=== PATIENT | female | born 1965 | race Caucasian/White ===

== ENCOUNTER 2017-01-27 10:59 | Emergency (ER) | payer OTHER ==
--- NOTE | 2017-01-27 11:32 | ED ---
General Adult HPI - General Chief complaint: Urogenital Stated complaint: Blood in urine Time Seen by Provider: 01/27/17 11:09 Source: patient, RN notes reviewed Mode of arrival: ambulatory Limitations: no limitations - History of Present Illness Initial comments: Patient 52-year-old female who presents emergency room today with chief complaint of hematuria. She does admit that she noticed some blood in her urine yesterday. States similar to get clear as the day went on. States she woke up today she went to the bathroom noticed blood once again. She denies any pain. She denies any other complaints or associated symptoms. States she' s never had similar symptoms in the past. Patient denies any recent fever, chills, shortness of breath, chest pain, back pain, abdominal pain, nausea or vomiting, numbness or tingling, dysuria, constipation or diarrhea, headaches or visual changes, or any other complaints. - Related Data Previous Rx's Medication Instructions Recorded Nitrofurantoin Monohyd/M-Cryst 100 mg PO Q12HR #14 cap 01/27/17 [Macrobid] predniSONE 60 mg PO DAILY 5 Days 01/27/17 Allergies Allergy/AdvReac Type Severity Reaction Status Date / Time UNIVERSAL REACTOR Allergy Unknown Uncoded 01/27/17 11:27 Review of Systems ROS Statement: Those systems with pertinent positive or pertinent negative responses have been documented in the HPI. ROS Other: All systems not noted in ROS Statement are negative. Past Medical History Additional Past Medical History / Comment(s): endometriosis, TMJ History of Any Multi-Drug Resistant Organisms: None Reported Past Surgical History: Tonsillectomy Additional Past Surgical History / Comment(s): eye surgery Past Psychological History: No Psychological Hx Reported Smoking Status: Never smoker Past Alcohol Use History: None Reported Past Drug Use History: None Reported General Exam - General Exam Comments Initial Comments: General: The patient is awake and alert, in no distress, and does not appear acutely ill. Eye: Pupils are equal, round and reactive to light, extra-ocular movements are intact. No nystagmus. There is normal conjunctiva bilaterally. No signs of icterus. Ears, nose, mouth and throat: There are moist mucous membranes and no oral lesions. Neck: The neck is supple, there is no tenderness or JVD. Cardiovascular: There is a regular rate and rhythm. No murmur, rub or gallop is appreciated. Respiratory: Lungs are clear to auscultation, respirations are non-labored, breath sounds are equal. No wheezes, stridor, rales, or rhonchi. Gastrointestinal: Soft, non-distended, non-tender abdomen without masses or organomegaly noted. There is no rebound or guarding present. No CVA tenderness. Bowel sounds are unremarkable. Musculoskeletal: Normal ROM, no tenderness. Strength 5/5. Sensation intact. Pulses equal bilaterally 2+. Neurological: A&O x 3. CN II-XII intact, There are no obvious motor or sensory deficits. Coordination appears grossly intact. Speech is normal. Skin: Skin is warm and dry and no rashes or lesions are noted. Psychiatric: Cooperative, appropriate mood & affect, normal judgment. Limitations: no limitations Course Vital Signs 01/27/17 11:01 Temperature 98.0 F Pulse Rate 76 Respiratory 20 Rate Blood Pressure 106/89 O2 Sat by Pulse 99 Oximetry Medical Decision Making - Medical Decision Making Patient does have a long history of ALLERGIC reactions. She is unsure what the reactions are to these medications. Long conversation have the patient. Multiple attempts made to call pharmacy and looked through records to see if patient's had any antibiotics without reaction. Patient at this time is not helpful with any other reactions to the medications. She states she typically takes steroids anytime she is given a new medicine. It was discussed about a dose of gentamicin here in emergency room. At this time patient states she is too afraid to take this antibiotic. She does not want any medications given to her here. She is advised that her urinalysis is consistent with urinary tract infection but needs follow-up with the family doctor or urologist to have a repeat test performed. Patient will be discharged home with a prescription for prednisone Macrobid. At this time patient states she is unsure if she'll take it. The importance of taking the medication was discussed. Importance of returning if symptoms increase or worsen was also discussed. Patient states understanding at this time. - Lab Data Result diagrams: 01/27/17 11:30 01/27/17 11:30 Lab Results 01/27/17 01/27/17 01/27/17 Range/Units 11:30 11:30 11:30 WBC 4.0 (3.8-10.6) k/uL RBC 4.79 (3.80-5.40) m/uL Hgb 13.5 (11.4-16.0) gm/dL Hct 42.0 (34.0-46.0) % MCV 87.6 (80.0-100.0) fL MCH 28.3 (25.0-35.0) pg MCHC 32.3 (31.0-37.0) g/dL RDW 14.6 (11.5-15.5) % Plt Count 144 L (150-450) k/uL Neutrophils % 63 % Lymphocytes % 21 % Monocytes % 9 % Eosinophils % 4 % Basophils % 1 % Neutrophils # 2.5 (1.3-7.7) k/uL Lymphocytes # 0.8 L (1.0-4.8) k/uL Monocytes # 0.3 (0-1.0) k/uL Eosinophils # 0.2 (0-0.7) k/uL Basophils # 0.0 (0-0.2) k/uL Sodium 138 (137-145) mmol/L Potassium 4.4 (3.5-5.1) mmol/L Chloride 100 (98-107) mmol/L Carbon Dioxide 27 (22-30) mmol/L Anion Gap 11 mmol/L BUN 20 H (7-17) mg/dL Creatinine 0.65 (0.52-1.04) mg/dL Est GFR (MDRD) Af Amer >60 (>60 ml/min/1.73 sqM) Est GFR (MDRD) Non-Af >60 (>60 ml/min/1.73 sqM) Glucose 78 (74-99) mg/dL Calcium 9.0 (8.4-10.2) mg/dL Total Bilirubin 0.5 (0.2-1.3) mg/dL AST 41 H (14-36) U/L ALT 51 (9-52) U/L Alkaline Phosphatase 83 (38-126) U/L Total Protein 7.2 (6.3-8.2) g/dL Albumin 4.1 (3.5-5.0) g/dL Urine Color Red Urine Appearance Cloudy H (Clear) Urine pH 7.0 (5.0-8.0) Ur Specific [place] 1.020 (1.001-1.035) Urine Protein 1+ H (Negative) Urine Glucose (UA) Negative (Negative) Urine Ketones Negative (Negative) Urine Blood Large H (Negative) Urine Nitrite Negative (Negative) Urine Bilirubin Negative (Negative) Urine Urobilinogen <2.0 (<2.0) mg/dL Ur Leukocyte Esterase Trace H (Negative) Urine RBC >182 H (0-5) /hpf Urine WBC >182 H (0-5) /hpf Disposition Clinical Impression: Hematuria, UTI (urinary tract infection) Disposition: HOME SELF-CARE Condition: Stable Instructions: Urinary Tract Infection in Women (ED) Additional Instructions: Please use medication as discussed. Please follow-up with urologist/family doctor in the next 2 days of symptoms have not improved. Please return to emergency room if the symptoms increase or worsen or for any other concerns. Prescriptions: Nitrofurantoin Monohyd/M-Cryst [Macrobid] 100 mg PO Q12HR #14 cap predniSONE 60 mg PO DAILY 5 Days Referrals: None,Stated [Primary Care Provider] - 1-2 days Damien Mailk MD [STAFF PHYSICIAN] - 1-2 days Chivo Claros DO [STAFF PHYSICIAN] - 1-2 days Time of Disposition: 13:24
[2017-01-27 12:22] LABS: Basophils % (A) 1 %; CH 28.3; CHCM 32.5; Eosinophils # (A) 0.2 k/uL (0-0.7); Eosinophils % (A) 4 %; HDW 2.12; HGB 13.5 gm/dL (11.4-16.0); Luc # (Auto) 0.11; Luc % (Auto) 3; Lymphocytes # (A) 0.8 k/uL (1.0-4.8); Lymphocytes % (A) 21 %; MCH 28.3 pg (25.0-35.0); MCHC 32.3 g/dL (31.0-37.0); MCV 87.6 fL (80.0-100.0); Mean Platelet Volume 8.1; Monocytes # (A) 0.3 k/uL (0-1.0); Monocytes % (A) 9 %; Neutrophils # (A) 2.5 k/uL (1.3-7.7); Neutrophils % (A) 63 %; RBC 4.79 m/uL (3.80-5.40); RDW 14.6 % (11.5-15.5); WBC (Perox) 4.27
[2017-01-27 12:32] LABS: ALT 51 U/L (9-52); AST 41 U/L (14-36); Alkaline Phosphatase 83 U/L (38-126); Anion Gap 11 mmol/L; Appearance,Urine Cloudy (Clear); Bilirubin,Urine Negative (Negative); Blood Urea Nitrogen 20 mg/dL (7-17); Carbon Dioxide 27 mmol/L (22-30); Chloride 100 mmol/L (98-107); Glucose 78 mg/dL (74-99); Glucose,Urine (UA) Negative (Negative); Ketones,Urine Negative (Negative); Leukocyte Esterase,Urine Trace (Negative); Nitrite,Urine Negative (Negative); Non-African American GFR(MDRD) >60 (>60 ml/min/1.73 sqM); Particle Count 8583; Potassium 4.4 mmol/L (3.5-5.1); Protein,Urine 1+ (Negative); RBC,Urine >182 /hpf (0-5); Sodium 138 mmol/L (137-145); Total Bilirubin 0.5 mg/dL (0.2-1.3); Total Protein 7.2 g/dL (6.3-8.2); UA Billing (MACRO vs. MICRO) MICRO; Urobilinogen,Urine <2.0 mg/dL (<2.0); WBC,Urine >182 /hpf (0-5)
[2017-01-27 13:35] VITALS: BP 113/67; PULSE 64; RESP 16; TEMP 96.9
== END 2017-01-27 13:35 | disposition home or self-care (01) ==
LOC: EC 10:59
DX: N39.0 Urinary tract infection, site not specified (principal); Z87.42 Personal history of other diseases of the female genital tract; Z91.048 Other nonmedicinal substance allergy status
CPT/HCPCS: 36415; 80053; 81001; 85025; 87086; 99283

== ENCOUNTER 2017-06-26 10:24 | Inpatient (IN) | payer OTHER ==
--- NOTE | 2017-06-26 10:58 | ED ---
Psych HPI - General Chief Complaint: Psychiatric Symptoms Stated Complaint: Not feeling good/depression Time Seen by Provider: 06/26/17 10:45 Source: patient, family Mode of arrival: wheelchair - History of Present Illness Initial Comments: This 52-year-old white female presents with her father with the complaint of not being able to eat for the last 2 days. She states that every time that she eats then it feels like her face will swell up and her throat will swell. She also states that she gets very nauseated and develops a headache. She apparently has been dealing with this for over 30 years. She states that she has been seen Multiple [facility] [place] and also spent a week at [facility] several years ago. They're unsure on what her exact diagnosis is. She seems to think that she has mass cell disorder and some type of autoimmune disorder although this is per her research on the Internet. She states that she has been unable to eat anything as anything that she takes and will cause her symptoms. She feels very depressed and anxious and this regard. She states that she does not believe in suicide but she wants us to treat her because she is confident that if we treat her then she will and she wants to . She denies any other complaints or modifying factors. - Related Data Home Medications Medication Instructions Recorded Confirmed No Known Home Medications [No 06/26/17 06/26/17 Known Home Medications] Allergies Allergy/AdvReac Type Severity Reaction Status Date / Time UNIVERSAL REACTOR Allergy Unknown Uncoded 01/27/17 11:27 Review of Systems ROS Statement: Those systems with pertinent positive or pertinent negative responses have been documented in the HPI. ROS Other: All systems not noted in ROS Statement are negative. Past Medical History Additional Past Medical History / Comment(s): endometriosis, TMJ, mast cell disorder, spotaneous idiopathic anaphylaxis History of Any Multi-Drug Resistant Organisms: None Reported Past Surgical History: Tonsillectomy Additional Past Surgical History / Comment(s): eye surgery Past Psychological History: No Psychological Hx Reported Smoking Status: Never smoker Past Alcohol Use History: None Reported Past Drug Use History: None Reported General Exam - General Exam Comments Initial Comments: GENERAL: The patient is well nourished and well hydrated. VITAL SIGNS: Heart rate, blood pressure, respiratory rate reviewed as recorded in nurse's notes. EYES: Pupils are round and reactive. Extraocular movements are intact. No conjunctival / lid redness or swelling. ENT: No external evidence of injury, swelling, or ecchymosis. Airway is patent. Throat is clear. NECK: Nontender. No swelling or evidence of injury. No subcutaneous emphysema. Trachea is midline. No thyroid mass. HEART: Regular rate and rhythm. Good peripheral pulses. LUNGS/CHEST: Breath sounds clear and equal bilaterally. No rales, rhonchi, or wheezes. No ecchymosis, subcutaneous emphysema, or tenderness. ABDOMEN: Abdomen soft without tenderness. No palpable masses or organomegaly. No peritoneal signs. No abdominal wall swelling or ecchymosis. EXTREMITIES: No extremity tenderness. Normal muscle tone and function. No thoracolumbar tenderness. NEUROLOGIC: Sensation is grossly intact. Cranial nerve exam reveals face is symmetrical, tongue is midline, speech is clear. SKIN: No abrasions or ecchymosis is noted. No induration or masses noted. PSYCHIATRIC: Alert and oriented. Somewhat obtrusive behavior noted, mild flat affect. Limitations: no limitations Course Vital Signs 06/26/17 10:26 Temperature 98.1 F Pulse Rate 78 Respiratory 18 Rate Blood Pressure 133/82 O2 Sat by Pulse 100 Oximetry Medical Decision Making - Medical Decision Making the patient was seen and examined. All diagnostics are reviewed.It appears that the patient's blood sugar is quite low at 54. The CO2 is low at 17 consistent with dehydration. She also has some ketones in her urine. An IV is established and she is hydrated. She also receives some IV glucose with a one half amp of D50. She also receives a D5 0.9 drip. The case is discussed with internal medicine and they're agreeable to admission. - Lab Data Result diagrams: 06/26/17 11:25 06/26/17 11:25 Lab Results 06/26/17 06/26/17 06/26/17 Range/Units 11:25 11:25 11:46 WBC 5.1 (3.8-10.6) k/uL RBC 5.07 (3.80-5.40) m/uL Hgb 14.5 (11.4-16.0) gm/dL Hct 44.7 (34.0-46.0) % MCV 88.3 (80.0-100.0) fL MCH 28.7 (25.0-35.0) pg MCHC 32.5 (31.0-37.0) g/dL RDW 12.1 (11.5-15.5) % Plt Count 177 (150-450) k/uL Neutrophils % 63 % Lymphocytes % 21 % Monocytes % 8 % Eosinophils % 3 % Basophils % 1 % Neutrophils # 3.2 (1.3-7.7) k/uL Lymphocytes # 1.1 (1.0-4.8) k/uL Monocytes # 0.4 (0-1.0) k/uL Eosinophils # 0.2 (0-0.7) k/uL Basophils # 0.1 (0-0.2) k/uL Sodium 136 L (137-145) mmol/L Potassium 3.8 (3.5-5.1) mmol/L Chloride 101 (98-107) mmol/L Carbon Dioxide 17 L (22-30) mmol/L Anion Gap 18 mmol/L BUN 18 H (7-17) mg/dL Creatinine 0.73 (0.52-1.04) mg/dL Est GFR (MDRD) Af Amer >60 (>60 ml/min/1.73 sqM) Est GFR (MDRD) Non-Af >60 (>60 ml/min/1.73 sqM) Glucose 55 L (74-99) mg/dL POC Glucose (mg/dL) (75-99) mg/dL POC Glu Roll Tension Tester ID Calcium 9.8 (8.4-10.2) mg/dL Urine Color Yellow Urine Appearance Clear (Clear) Urine pH 5.5 (5.0-8.0) Ur Specific [place] 1.020 (1.001-1.035) Urine Protein Trace H (Negative) Urine Glucose (UA) Negative (Negative) Urine Ketones 3+ H (Negative) Urine Blood Small H (Negative) Urine Nitrite Negative (Negative) Urine Bilirubin Negative (Negative) Urine Urobilinogen <2.0 (<2.0) mg/dL Ur Leukocyte Esterase Moderate H (Negative) Urine RBC 1 (0-5) /hpf Urine WBC 7 H (0-5) /hpf Ur Squamous Epith Cells 6 H (0-4) /hpf Urine Bacteria Occasional H (None) /hpf Urine Mucus Rare H (None) /hpf Salicylates <1.0 mg/dL Urine Opiates Screen Not Detected (NotDetected) Ur Oxycodone Screen Not Detected (NotDetected) Urine Methadone Screen Not Detected (NotDetected) Ur Propoxyphene Screen Not Detected (NotDetected) Acetaminophen <10.0 ug/mL Ur Barbiturates Screen Not Detected (NotDetected) U Tricyclic Antidepress Not Detected (NotDetected) Ur Phencyclidine Scrn Not Detected (NotDetected) Ur Amphetamines Screen Not Detected (NotDetected) U Methamphetamines Scrn Not Detected (NotDetected) U Benzodiazepines Scrn Not Detected (NotDetected) Urine Cocaine Screen Not Detected (NotDetected) U Marijuana (THC) Screen Not Detected (NotDetected) Serum Alcohol <10 mg/dL 06/26/17 Range/Units 12:17 WBC (3.8-10.6) k/uL RBC (3.80-5.40) m/uL Hgb (11.4-16.0) gm/dL Hct (34.0-46.0) % MCV (80.0-100.0) fL MCH (25.0-35.0) pg MCHC (31.0-37.0) g/dL RDW (11.5-15.5) % Plt Count (150-450) k/uL Neutrophils % % Lymphocytes % % Monocytes % % Eosinophils % % Basophils % % Neutrophils # (1.3-7.7) k/uL Lymphocytes # (1.0-4.8) k/uL Monocytes # (0-1.0) k/uL Eosinophils # (0-0.7) k/uL Basophils # (0-0.2) k/uL Sodium (137-145) mmol/L Potassium (3.5-5.1) mmol/L Chloride (98-107) mmol/L Carbon Dioxide (22-30) mmol/L Anion Gap mmol/L BUN (7-17) mg/dL Creatinine (0.52-1.04) mg/dL Est GFR (MDRD) Af Amer (>60 ml/min/1.73 sqM) Est GFR (MDRD) Non-Af (>60 ml/min/1.73 sqM) Glucose (74-99) mg/dL POC Glucose (mg/dL) 54 L (75-99) mg/dL POC Glu Roll Tension Tester ID Crystal Aguila Calcium (8.4-10.2) mg/dL Urine Color Urine Appearance (Clear) Urine pH (5.0-8.0) Ur Specific [place] (1.001-1.035) Urine Protein (Negative) Urine Glucose (UA) (Negative) Urine Ketones (Negative) Urine Blood (Negative) Urine Nitrite (Negative) Urine Bilirubin (Negative) Urine Urobilinogen (<2.0) mg/dL Ur Leukocyte Esterase (Negative) Urine RBC (0-5) /hpf Urine WBC (0-5) /hpf Ur Squamous Epith Cells (0-4) /hpf Urine Bacteria (None) /hpf Urine Mucus (None) /hpf Salicylates mg/dL Urine Opiates Screen (NotDetected) Ur Oxycodone Screen (NotDetected) Urine Methadone Screen (NotDetected) Ur Propoxyphene Screen (NotDetected) Acetaminophen ug/mL Ur Barbiturates Screen (NotDetected) U Tricyclic Antidepress (NotDetected) Ur Phencyclidine Scrn (NotDetected) Ur Amphetamines Screen (NotDetected) U Methamphetamines Scrn (NotDetected) U Benzodiazepines Scrn (NotDetected) Urine Cocaine Screen (NotDetected) U Marijuana (THC) Screen (NotDetected) Serum Alcohol mg/dL Disposition Clinical Impression: Dehydration, Ketonuria, Hypoglycemia, Depression Disposition: ADMITTED IP TO THIS [facility] Condition: Fair Referrals: None,Stated [Primary Care Provider] - 1-2 days Time of Disposition: 12:48
[2017-06-26 11:35] LABS: Basophils # (A) 0.1 k/uL (0-0.2); Basophils % (A) 1 %; CH 28.8; CHCM 32.8; Eosinophils # (A) 0.2 k/uL (0-0.7); Eosinophils % (A) 3 %; HCT 44.7 % (34.0-46.0); HDW 2.22; HGB 14.5 gm/dL (11.4-16.0); Luc # (Auto) 0.22; Luc % (Auto) 4; Lymphocytes # (A) 1.1 k/uL (1.0-4.8); Lymphocytes % (A) 21 %; MCH 28.7 pg (25.0-35.0); MCHC 32.5 g/dL (31.0-37.0); MCV 88.3 fL (80.0-100.0); Mean Platelet Volume 7.4; Monocytes # (A) 0.4 k/uL (0-1.0); Monocytes % (A) 8 %; Neutrophils # (A) 3.2 k/uL (1.3-7.7); Neutrophils % (A) 63 %; RBC 5.07 m/uL (3.80-5.40); RDW 12.1 % (11.5-15.5); WBC 5.1 k/uL (3.8-10.6); WBC (Perox) 4.75
[2017-06-26 11:49] LABS: Acetaminophen <10.0 ug/mL; Alcohol <10 mg/dL; Anion Gap 18 mmol/L; Blood Urea Nitrogen 18 mg/dL (7-17); Calcium 9.8 mg/dL (8.4-10.2); Carbon Dioxide 17 mmol/L (22-30); Chloride 101 mmol/L (98-107); Glucose 55 mg/dL (74-99); Non-African American GFR(MDRD) >60 (>60 ml/min/1.73 sqM); Potassium 3.8 mmol/L (3.5-5.1); Salicylate <1.0 mg/dL; Sodium 136 mmol/L (137-145)
[2017-06-26 12:04] LABS: Appearance,Urine Clear (Clear); Bacteria,Urine Occasional /hpf; Bilirubin,Urine Negative (Negative); Glucose,Urine (UA) Negative (Negative); Ketones,Urine 3+ (Negative); Leukocyte Esterase,Urine Moderate (Negative); Mucus,Urine Rare /hpf; Nitrite,Urine Negative (Negative); PH, Urine 5.5 (5.0-8.0); Particle Count 4594; Protein,Urine Trace (Negative); RBC,Urine 1 /hpf (0-5); Squamous Epithelial Cell,Urine 6 /hpf (0-4); UA Billing (MACRO vs. MICRO) MICRO; Urobilinogen,Urine <2.0 mg/dL (<2.0); WBC,Urine 7 /hpf (0-5)
[2017-06-26] MEDS ORDERED: SODIUM CHLORIDE 0.9% 1,000 ML IV STA (12:17)
[2017-06-26] MEDS ORDERED: DEXTROSE 50%-WATER 50 ML SYRINGE IVP STA (12:18)
[2017-06-26 12:44] LABS: Glucose,Whole Blood 54 mg/dL (75-99)
[2017-06-26 13:18] LABS: Glucose,Whole Blood 139 mg/dL (75-99)
[2017-06-26] MEDS ORDERED: MELATONIN 3 MG TABLET PO PRN (13:40)
[2017-06-26] MEDS ORDERED: CALCIUM CARBONATE 500 MG CHEWABLE PO PRN (13:40)
[2017-06-26] MEDS ORDERED: ALPRAZolam 0.25 MG TAB PO PRN (13:40)
[2017-06-26] MEDS ORDERED: IBUPROFEN 400 MG TAB PO PRN (13:40)
[2017-06-26] MEDS ORDERED: ACETAMINOPHEN TAB 325 MG TAB PO PRN (13:40)
[2017-06-26] MEDS ORDERED: ONDANSETRON 4 MG/2 ML VIAL IVP PRN (13:40)
[2017-06-26] MEDS: DEXTROSE 5%-0.9% NACL 1,000 ML IV SCH (15:22)
--- NOTE | 2017-06-26 15:49 | P.HPIM ---
History of Present Illness H&P Date: 06/26/17 Chief Complaint: allergic reactions Patient is a 52-year-old female with a past medical history of autoimmune related food intolerance, and migraine headaches who presented to the ER department with suicidal ideation secondary to inability to eat. Emergency department she underwent an extensive evaluation. Her initial vital signs were within normal limits. Laboratory exam revealed an anion gap metabolic acidosis, hypoglycemia, hyponatremia, and ketonuria. She was started on IV fluids and admitted to the general medical floor for further monitoring and care. Patient seen and examined at bedside. She reports a 20 year history of food intolerance and ALLERGIES to all medications. 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 Which she took for 2 years but felt it didn't help so she stopped taking this. She states that anything she ate causes her throat to feel like it is swollen and scratchy. She describes inability to swallow and control her saliva. She states that her face swells. She then develops rashes underneath her eyes and on her chest. She states that she had been eating [place] and [place] but even these started reacting recently. She has not ate anything since Sunday. She also reports associated nausea, vomiting, and migraine headaches with these episodes. She develops a fullness in her years and has bilateral ear pain with these areas she also has cold intolerance. She also reports tingling in her face and bilateral hands and bilateral legs and feet. Her decompensated she has been taking in liquids and some pured meats. She states that she can't tolerate this anymore, not being able to eat anything and she wishes she could . During our conversation she keeps asking for my assistance with dying She also states she does not want to be in the hospital and does not know why her family brought her here. She states that she was worked up at the [facility] but they could not give her a definitive diagnosis. She has not seen a family doctor in 2 years. She states recently she saw a specialist at [facility] who sent labs off area they told her they did not find anything that she states she saw the labs on her my chart she has arsenic poisoning. She believes the arsenic poison was secondary to eating too many rice cakes. She also describes a process when she developed a thyroid goiter and required multiple biopsies. They were unsure if she had cancer and she then treated herself with food grade iodine and her goiter resolved. She keeps saying at all in my head, every one thinks its all in my head. She states that in November she was unable to walk and was requiring a wheelchair. She states this resolved and she started to improve and could tolerate eating small amounts again. She states she cannot handle this setback. Family reports that her ALLERGIC reactions have been so bad in the past that her eyes were swollen shut, she has developed corneal ulcers, but she has not required intubation. Review of Systems General: no fever/chills, no rigors, + weight loss, + fatigue Eyes: no noticeable visual changes, no loss of vision ENT: no rhinorrhea, no congestion, no sore throat, + facial and throat swelling Cardiovascular: no chest pain, no palpitations, no preyncope/syncope, no edema Pulmonary: no shortness of breath, no wheezing, no cough Abdominal: no abdominal pain, no constipation, no diarrhea, no vomiting, no nausea Genitourinary: no dysuria, no urinary frequency, no unusual discharge/odor Neuro: + paresthesias, no unusual paresis/paralysis, no headache Dermatologic: + rashes over face and neck, no unusual lesions, no unusual changes in nails Hematologic: no hemoptysis, no hematuria, no melena/hematochezia Psychiatric: + depression, no changes in sleep pattern Past Medical History Additional Past Medical History / Comment(s): Pt states she has been diagnosed thru the [facility] with an unnamed autoimmune disease, spontaneous idiopathic anaphylaxis and angioedema. 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 Pt states she has been dealing with her disease symptoms for 30 yrs. She has been evaluated all over the [place]. She states she cannot eat, because when she does at times her throat swells, has difficulty swallowing, she gets nausea, headaches, rash, eye ulcers , bilateral eardrums swell affecting hearing. Pt states she mostly eats liquids and right now she is tolerating meats pureed the best. She is malnorished. Pt states at one time in the past year she was able to tolerate rice cakes and ate them in excess-she states that caused her to have arsenic toxicity. She also states she has bilateral tinnitis, numbness and tingling arms/hands and legs/feet. She has difficulty ambulating and uses a wheelchair at times, she has had TMJ and endometriosis. She also thinks that she has a mast cell disorder. History of Any Multi-Drug Resistant Organisms: None Reported Past Surgical History: Tonsillectomy Additional Past Surgical History / Comment(s): EGDs/colonoscopies, esophageal fingerlike lesions removed, goiter bx, jaw surgery for misalignment, D&C, bilateral eye corrective surgery Past Anesthesia/Blood Transfusion Reactions: No Reported Reaction Past Psychological History: Anxiety Additional Psychological History / Comment(s): Pt states she has anxiety r/t her health problems. She denies depression or thoughts of suicide. She states she will not kill herself because she is Orthodox. She just wants to . She repeatedly asks to be fed something because this will cause her . She states she is tired of living like this. She states she did not want to come to the hospital today-"I could have at home in 2 more days! She states her father made her come to hospital. Smoking Status: Never smoker Past Alcohol Use History: None Reported Past Drug Use History: None Reported - Past Family History Father Family Medical History: No Reported History Mother Additional Family Medical History / Comment(s): Mother had paranoid schizophrenia. Medications and Allergies Home Medications Medication Instructions Recorded Confirmed Type No Known Home Medications [No 06/26/17 06/26/17 History Known Home Medications] Allergies Allergy/AdvReac Type Severity Reaction Status Date / Time UNIVERSAL REACTOR Allergy Unknown Uncoded 01/27/17 11:27 Physical Exam Osteopathic Statement: *. No significant issues noted on an osteopathic structural exam other than those noted in the History and Physical/Consult. Vitals: Vital Signs Temp Pulse Resp BP Pulse Ox 06/26/17 13:50 97.7 F 61 16 112/66 100 06/26/17 10:26 98.1 F 78 18 133/82 100 Intake and Output 06/26/17 06/26/17 06/26/17 06:59 14:59 22:59 Other: Weight 42.638 kg Patient Weight 06/27/17 06:59 Weight 42.638 kg General: non toxic, no distress, appears older than stated age, cachectic Derm: +multiple lesions over face and chest with erytherma without scale /crust/ drainiage, bronzing of skin on arms no unusual ecchymoses, warm, dry Head: atraumatic, normocephalic, symmetric Eyes: EOMI, no lid lag, anicteric sclera, pupils equal round reactive to light ENT: + enlarged parotid glands b/l, Nose and ears atraumatic, no thrush, no pharyngeal erythema Neck: No thyromegaly, no cervical lymphadenopathy, trachea midline, supple Mouth: no lip lesion, mucus membranes moist Cardiovascular: S1S2 reg, no murmur, positive posterior tibial pulse bilateral, no edema, capillary refill less than 2 seconds Lungs: CTA bilateral, no rhonchi, no rales , no accessory muscle use Abdominal: soft, nontender to palpation, no guarding, no appreciable organomegaly, normal bowel sounds Ext: no gross muscle atrophy, muscle strength 5 out of 5 in all 4 extremities grossly, no contractures, Neuro: CN II-XI grossly intact, light touch intact all 4 extremities, finger to nose within normal limits, Psych: Alert, oriented, anxious affect Results CBC & Chem 7: 06/26/17 11:25 06/26/17 11:25 Labs: Abnormal Lab Results - Last 24 Hours (Table) 06/26/17 06/26/17 06/26/17 Range/Units 11:25 11:46 12:17 Sodium 136 L (137-145) mmol/L Carbon Dioxide 17 L (22-30) mmol/L BUN 18 H (7-17) mg/dL Glucose 55 L (74-99) mg/dL POC Glucose (mg/dL) 54 L (75-99) mg/dL Urine Protein Trace H (Negative) Urine Ketones 3+ H (Negative) Urine Blood Small H (Negative) Ur Leukocyte Esterase Moderate H (Negative) Urine WBC 7 H (0-5) /hpf Ur Squamous Epith Cells 6 H (0-4) /hpf Urine Bacteria Occasional H (None) /hpf Urine Mucus Rare H (None) /hpf 06/26/17 Range/Units 13:16 Sodium (137-145) mmol/L Carbon Dioxide (22-30) mmol/L BUN (7-17) mg/dL Glucose (74-99) mg/dL POC Glucose (mg/dL) 139 H (75-99) mg/dL Urine Protein (Negative) Urine Ketones (Negative) Urine Blood (Negative) Ur Leukocyte Esterase (Negative) Urine WBC (0-5) /hpf Ur Squamous Epith Cells (0-4) /hpf Urine Bacteria (None) /hpf Urine Mucus (None) /hpf Thrombosis Risk Factor Assmnt - DVT/VTE Prophylaxis DVT/VTE Prophylaxis: Mechanical Prophylaxis ordered - Choose All That Apply Any of the Below Risk Factors Present?: Yes Each Factor Represents 1 point: Age 41-60 years Other Risk Factors: No Other congenital or acquired thrombophilia - If yes, enter type in comment: No Thrombosis Risk Factor Assessment Total Risk Factor Score: 1 Thrombosis Risk Factor Assessment Level: Low Risk Assessment and Plan Assessment: Angioedema versus histamine response versus other -Obtain records from [facility] and [place] regarding arsenic poisoning and autoimmune disease -Check an TERESA, double-stranded DNA, IgE level, and random cortisol level as the patient has bronzing of her skin -Monitor for signs of reaction when eating Vital ideation -Suicide precautions -Consult psychiatry Starvation ketosis with hypoglycemia -Anion gap metabolic acidosis - D5 half-normal with 40 of KCl -Repeat basic metabolic profile in a.m. - Accu-Chek 4 times daily History of thyroid goiter -Check TSH and free T4 Review protein calorie malnutrition with cachexia and BMI of 15.6 -Dietary recommendations -Will not initiate supplementation at this time the patient's severe ALLERGIES Surrogate decision-maker: Spouse Jacques CODE STATUS:Full by default as patient is suicidal DVT prophylaxis: SCDsPa Discussed with: Patient, family, nursing Anticipated discharge: 24-[address]: [facility] vs tertiary care vs home A total of 60 minutes was spent on the care of this complex patient more than 50 % of the time was spent in counseling and care coordination.
[2017-06-26 17:11] LABS: Glucose,Whole Blood 100 mg/dL (75-99)
[2017-06-26 20:29] LABS: ANA w/Reflex to Titer NEGATIVE (NEGATIVE)
[2017-06-26 20:55] LABS: Glucose,Whole Blood 101 mg/dL (75-99)
[2017-06-27] MEDS: DEXTROSE 5%-0.9% NACL 1,000 ML IV SCH ×3 (06:00→18:01)
[2017-06-27 07:50] LABS: Glucose,Whole Blood 114 mg/dL (75-99)
[2017-06-27 08:04] LABS: CH 27.8; CHCM 32.1; HDW 2.01; HGB 12.1 gm/dL (11.4-16.0); MCH 29.2 pg (25.0-35.0); MCHC 33.6 g/dL (31.0-37.0); Mean Platelet Volume 8.3; RBC 4.13 m/uL (3.80-5.40); RDW 13.5 % (11.5-15.5); WBC 4.4 k/uL (3.8-10.6)
[2017-06-27 08:21] LABS: ALT 36 U/L (9-52); AST 21 U/L (14-36); Alkaline Phosphatase 42 U/L (38-126); Anion Gap 5 mmol/L; Blood Urea Nitrogen 9 mg/dL (7-17); Calcium 8.6 mg/dL (8.4-10.2); Carbon Dioxide 24 mmol/L (22-30); Chloride 109 mmol/L (98-107); Glucose 119 mg/dL (74-99); Magnesium 1.9 mg/dL (1.6-2.3); Non-African American GFR(MDRD) >60 (>60 ml/min/1.73 sqM); Potassium 3.8 mmol/L (3.5-5.1); Sodium 138 mmol/L (137-145); Total Bilirubin 0.8 mg/dL (0.2-1.3); Total Protein 5.7 g/dL (6.3-8.2)
[2017-06-27 09:22] VITALS: BMI 15.6
[2017-06-27 12:49] LABS: Glucose,Whole Blood 83 mg/dL (75-99)
--- NOTE | 2017-06-27 13:36 | P.PN ---
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 the patient has gone through multiple institutions to diagnose this problem. She was refused at [facility]. she has this [place] area and angioedema every time she eats. She says that she stopped eating for 3-4 days throaty. Respirator and then starts eating boiled meat slowly until her symptoms start again. She says that multiple doctors told her that this is at. But she said she is tired of the situation. She stopped eating wanting to . She says she is starting to feel better now. She refuses to eat, she feels that her swallowing is better Objective - Vital Signs Vital signs: Vital Signs Temp 97.2 F L 06/27/17 07:00 Pulse 67 06/27/17 07:00 Resp 16 06/27/17 07:00 BP 103/58 06/27/17 07:00 Pulse Ox 99 06/27/17 07:00 Intake & Output 06/26/17 06/27/17 06/27/17 18:59 06:59 18:59 Weight 42.638 kg 42.638 kg Other: Voiding Method Toilet # Voids 2 - Exam gen:alert and oriented lungs:clear to auscultation heart:s1s2 abdomen:soft and depressible,non tender ext:no edema - Labs CBC & Chem 7: 06/27/17 07:25 06/27/17 07:25 Labs: Abnormal Lab Results - Last 24 Hours (Table) 06/26/17 06/26/17 06/27/17 Range/Units 17:09 20:53 07:25 Chloride 109 H (98-107) mmol/L Glucose 119 H (74-99) mg/dL POC Glucose (mg/dL) 100 H 101 H (75-99) mg/dL Total Protein 5.7 L (6.3-8.2) g/dL Albumin 2.9 L (3.5-5.0) g/dL 06/27/17 Range/Units 07:45 Chloride (98-107) mmol/L Glucose (74-99) mg/dL POC Glucose (mg/dL) 114 H (75-99) mg/dL Total Protein (6.3-8.2) g/dL Albumin (3.5-5.0) g/dL Assessment and Plan (1) Angioedema Narrative/Plan: improving Patient refuses to eat Is refusing any transfer to a tertiary care hospital( I have seen them all) Current Visit: Yes Status: Acute Code(s): T78.3XXA - ANGIONEUROTIC EDEMA, INITIAL ENCOUNTER SNOMED Code(s): 53752849 (2) Starvation Narrative/Plan: continue hydration Current Visit: Yes Status: Acute Code(s): T73.0XXA - STARVATION, INITIAL ENCOUNTER SNOMED Code(s): 856660545 (3) Suicidal ideation Narrative/Plan: she refuses to eat She wants to She she is tired of her situation Current Visit: Yes Status: Acute Code(s): R45.851 - SUICIDAL IDEATIONS SNOMED Code(s): 4607509 (4) Malnutrition Narrative/Plan: secondary to starvation Current Visit: Yes Status: Acute Code(s): E46 - UNSPECIFIED PROTEIN-CALORIE MALNUTRITION SNOMED Code(s): 74364271 Plan: we'll await psych input. Patient is refusing any other evaluation for this issue at a different institution
[2017-06-27 16:42] LABS: Iron Saturation 35.68 (12.00-45.00)
[2017-06-27 17:11] LABS: Glucose,Whole Blood 84 mg/dL (75-99)
[2017-06-27 21:08] LABS: Glucose,Whole Blood 87 mg/dL (75-99)
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
[2017-06-28] MEDS: DEXTROSE 5%-0.9% NACL 1,000 ML IV SCH ×2 (05:25→15:02)
[2017-06-28 07:32] LABS: Glucose,Whole Blood 100 mg/dL (75-99)
--- NOTE | 2017-06-28 11:35 | P.PN ---
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 the patient has gone through multiple institutions to diagnose this problem. She was refused at [facility]. she has this [place] area and angioedema every time she eats. She says that she stopped eating for 3-4 days throaty. Respirator and then starts eating boiled meat slowly until her symptoms start again. She says that multiple doctors told her that this is at. But she said she is tired of the situation. She stopped eating wanting to . She says she is starting to feel better now. She refuses to eat, she feels that her swallowing is better Objective - Vital Signs Vital signs: Vital Signs Temp 97.6 F 06/28/17 07:00 Pulse 63 06/28/17 07:00 Resp 18 06/28/17 07:00 BP 99/64 06/28/17 07:00 Pulse Ox 99 06/28/17 07:00 Intake & Output 06/27/17 06/28/17 06/28/17 18:59 06:59 18:59 Weight 42.638 kg Other: Voiding Method Toilet # Voids 3 1 - Exam gen:alert and oriented, cachectic lungs:clear to auscultation heart:s1s2 abdomen:soft and depressible,non tender ext:no edema - Labs CBC & Chem 7: 06/27/17 07:25 06/27/17 07:25 Labs: Abnormal Lab Results - Last 24 Hours (Table) 06/27/17 06/27/17 06/28/17 Range/Units 07:25 07:25 07:30 POC Glucose (mg/dL) 100 H (75-99) mg/dL TIBC 199 L (228-460) ug/dL Vitamin B12 1811.0 H (200.0-944.0) pg/mL RBC Folate 254 L (280 - 791) ng/mL IgE 484.00 H (0.00-114.00) IU/mL Assessment and Plan (1) Angioedema Narrative/Plan: Patient and family has had many visits to tertiary care centers [place], [facility] and many others. They are refusing to go anywhere else I told them that I am limited in what I can do here. Current Visit: Yes Status: Acute Code(s): T78.3XXA - ANGIONEUROTIC EDEMA, INITIAL ENCOUNTER SNOMED Code(s): 36723357 (2) Starvation Narrative/Plan: Family is requesting feeding tube. Patient is refusing I explained to family that I cannot do this against her will. And the risk of reaction is still there with the feeding tube. Current Visit: Yes Status: Acute Code(s): T73.0XXA - STARVATION, INITIAL ENCOUNTER SNOMED Code(s): 069759103 (3) Suicidal ideation Narrative/Plan: Patient deemed not actively suicidal and does not need inpatient psych. Patient says she is not actively suicidal but she says she will not eat Current Visit: Yes Status: Acute Code(s): R45.851 - SUICIDAL IDEATIONS SNOMED Code(s): 9814019 (4) Malnutrition Narrative/Plan: Not much can be offered if patient refuses to eat and she is competent Current Visit: Yes Status: Acute Code(s): E46 - UNSPECIFIED PROTEIN-CALORIE MALNUTRITION SNOMED Code(s): 24632731 Plan: Discussed with Dr Petty, she will reassess patient to help [facility] plan.
[2017-06-28 12:02] LABS: Glucose,Whole Blood 102 mg/dL (75-99)
--- NOTE | 2017-06-28 14:32 | P.PN ---
Progress Note - Text Progress Note Date: 06/28/17 Interval History: Patient seen laying in bed this afternoon. She continues to be depressed mainly due to her current medical condition and inability to eat. Spoke with patient regarding the option of feeding tube placement and pt voiced disinterest due to her extensive research that has shown unsuccessful results in patients with similar conditions as herself. She states that if she could find a hospital that has success in feeding tube placement in her situation, she would be willing to try. Also, states that she is willing to go along with her families plans for her care and that they are looking into other facilities where she can be better cared for. Even looking as far as [place]. Pt does still have feelings of hopelessness and states that she is tired of fighting. She continues to deny SI. I also spoke with patient's who was very frustrated with her care. He stated concerns about patient's nutrition. Informed her of patient's decision making capacity and that if she is refusing a feeding tube it cannot be forced upon her at this time. requesting other options such as a public administration professor consult or parenteral nutrition "vitamin bag" that patient can be given for supplementation. Also, voices some concern regarding the facility that will be recommended for patient's transfer. MSE: Pt is a 52yo female who appears stated age, but thin and fragile. She is calm and cooperative. Speech is spontaneous with normal rate and volume. Her mood is depressed and affect is restricted. Denies SI but does have thoughts of . Denies HI and AVH. Thought process was linear and goal-directed. AAO x 3. Memory grossly intact. Judgment is limited and insight is fair. ASSESSMENT: 1. Adjustment Disorder with Depressed Mood Plan: Patient does have decision making capacity at this time. She does state that she is willing to go along with her family's plan and considering transfer to another facility. Continues to deny active suicidal thoughts. Will sign off at this time and follow peripherally. Thank you.
[2017-06-28 16:54] LABS: Glucose,Whole Blood 99 mg/dL (75-99)
[2017-06-28 20:51] LABS: Glucose,Whole Blood 102 mg/dL (75-99)
[2017-06-29] MEDS: DEXTROSE 5%-0.9% NACL 1,000 ML IV SCH ×3 (00:09→22:03)
[2017-06-29 07:27] LABS: Glucose,Whole Blood 115 mg/dL (75-99)
--- NOTE | 2017-06-29 09:05 | P.PN ---
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 the patient has gone through multiple institutions to diagnose this problem. She was refused at [facility]. she has this [place] area and angioedema every time she eats. She says that she stopped eating for 3-4 days throaty. Respirator and then starts eating boiled meat slowly until her symptoms start again. She says that multiple doctors told her that this is at. But she said she is tired of the situation. She stopped eating wanting to . She says she is starting to feel better now. Today patient seems to be willing to be transferred to a different institution if the family wants. I did discuss with the and he wants me to talk with the father when he comes in for decision on where to transfer her. Objective - Vital Signs Vital signs: Vital Signs Temp 97 F L 06/29/17 05:50 Pulse 60 06/29/17 05:50 Resp 16 06/29/17 05:50 BP 105/62 06/29/17 05:50 Pulse Ox 100 06/29/17 05:50 Intake & Output 06/28/17 06/29/17 06/29/17 18:59 06:59 18:59 Other: Voiding Method Toilet # Voids 2 1 - Exam gen:alert and oriented, cachectic lungs:clear to auscultation heart:s1s2 abdomen:soft and depressible,non tender ext:no edema - Labs CBC & Chem 7: 06/27/17 07:25 06/27/17 07:25 Labs: Abnormal Lab Results - Last 24 Hours (Table) 06/28/17 06/28/17 06/29/17 Range/Units 11:52 20:49 07:10 POC Glucose (mg/dL) 102 H 102 H 115 H (75-99) mg/dL Assessment and Plan (1) Angioedema Narrative/Plan: Patient and family has had many visits to tertiary care centers [facility], [facility] and many others. Today patient is willing to be transferred. We'll discuss with father as per wishes on her transfer patient. I do feel that this is appropriate decision for her. Since we are limited in treating this kind of condition. And we have limited resources. Current Visit: Yes Status: Acute Code(s): T78.3XXA - ANGIONEUROTIC EDEMA, INITIAL ENCOUNTER SNOMED Code(s): 55408765 (2) Starvation Narrative/Plan: This is secondary to above issues. It is unclear to me whether there is some urticaria to some type of foods there is a psychiatric element added to this. But I still don't have any other records to support the diagnosis but patient is ALLERGIC to all types of food. Since patient is willing to be transferred now I think this is the best decision for her. Current Visit: Yes Status: Acute Code(s): T73.0XXA - STARVATION, INITIAL ENCOUNTER SNOMED Code(s): 377614337 (3) Suicidal ideation Narrative/Plan: Patient deemed not actively suicidal and does not need inpatient psych. Patient says she is not actively suicidal Patient is will need to be transferred at this time. Anything this is a big improvement for her. Current Visit: Yes Status: Acute Code(s): R45.851 - SUICIDAL IDEATIONS SNOMED Code(s): 6202154 (4) Malnutrition Narrative/Plan: At this point patient is willing to be transferred. We'll pursue this Current Visit: Yes Status: Acute Code(s): E46 - UNSPECIFIED PROTEIN-CALORIE MALNUTRITION SNOMED Code(s): 22977874 Plan: I had a discussion with the . He is upset that we cannot of her the help that she needs. I explained our the palpitations and mild limitation with dealing with somebody with this type of condition. He still seems upset that I' m not willing to read and try to do something for her. I explained that it is a risk to try to feed her if she truly has ALLERGIES to any type of food that she has eaten in the past. So we'll await father and discuss options.
[2017-06-29 11:46] LABS: Glucose,Whole Blood 106 mg/dL (75-99)
--- NOTE | 2017-06-29 12:13 | P.PN ---
Progress Note - Text Progress Note Date: 06/29/17 discussed with father. Elida brother has been researching and is looking for options for her [place] to [place]. Seems by he has found a doctor in [place] in the brother is looking to see if there is anybody closer to take and go. But they are planning on taking her there upon discharge. We'll continue IV fluids. I did discuss with rub and she is not willing to try anything oral at this time. They they want to wait to see what the brother's research gets to and take him to that physician that can take care of her condition or is familiar with her condition. sort of further closer option is not well they are going to take her to [place]. They are asking me to keep her UNTIL THAT DECISION IS MADE
[2017-06-29 17:47] LABS: Glucose,Whole Blood 92 mg/dL (75-99)
[2017-06-29 21:16] LABS: Glucose,Whole Blood 107 mg/dL (75-99)
[2017-06-30] MEDS: DEXTROSE 5%-0.9% NACL 1,000 ML IV SCH (07:29)
[2017-06-30 07:30] LABS: Glucose,Whole Blood 91 mg/dL (75-99)
[2017-06-30 07:53] VITALS: BP 85/51; PULSE 52; RESP 18; TEMP 97.4
--- NOTE | 2017-06-30 11:20 | P.DS ---
Providers Date of admission: 06/29/17 11:39 Expected date of discharge: 06/30/17 Attending physician: Lexus Strange, DO Consults: 06/26/17 13:42 Consult Physician Routine Consulting Provider: Devaughn Petty Consult Reason/Comments: sucidial ideation/request Do you want consulting provider notified?: Yes Primary care physician: Stated None - Discharge Diagnosis(es) (1) Angioedema Current Visit: Yes Status: Acute (2) Starvation Current Visit: Yes Status: Acute (3) Suicidal ideation Current Visit: Yes Status: Acute (4) Malnutrition Current Visit: Yes Status: Acute Hospital Course: 52-year-old female with a rare disorder in which patient says that she has angioedema urticaria with any type of food. Patient has had an evaluation and several facilities seems including [facility], and at [facility] and [facility]. Patient has been struggling with this in which whenever she has on reaction she develops hives and become short of breath with swelling in her throat. She stops eating for 3 days until symptoms improve. Then she tries to gradually and slowly try to eat something on [place] develops another reaction. Patient patient refused to to try to eat here. I did offer to attempt to transfer her to a different institution. But she she and family refused because she has gone these institutions in the past and they were not able to help her. I encouraged as because we Kaylene Hou have limited access to specialist. That we felt that could help her. She did have a psychiatry if no here to see whether patient was actively suicidal and this was felt to be not the case. And she felt that Howard is competent and able to make her decisions. So we had to respect her decision in refusing to eat even know no wheezing that this could kill her. Now the patient is willing to seek help upon the insistence of her family. End of family had been doing research to see who and [facility] is familiar with her case. First they were discussing going to [place]. No they want to take her to a physician at [facility]. At this point I do not have any records to to confirm a certain diagnosis. The patient insisted she cannot take anything orally. Psychologically she is a little better and her present her initial stenosis wasshe wanted to go home and . but now is willing to go for help. Patient Condition at Discharge: Stable Plan - Discharge Summary Discharge Rx Participant: Yes New Discharge Prescriptions: No Action No Known Home Medications [No Known Home Medications] Discharge Medication List No Known Home Medications [No Known Home Medications] 06/26/17 [History] Follow up Appointment(s)/Referral(s): None,Stated [Primary Care Provider] - 1-2 days Discharge Disposition: HOME SELF-CARE
--- NOTE | 2017-06-30 11:24 | P.PN ---
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 the patient has gone through multiple institutions to diagnose this problem. She was refused at [facility]. she has this [place] area and angioedema every time she eats. She says that she stopped eating for 3-4 days throaty. Respirator and then starts eating boiled meat slowly until her symptoms start again. She says that multiple doctors told her that this is at. But she said she is tired of the situation. She stopped eating wanting to . She says she is starting to feel better now. Today patient seems to be willing to be transferred to a different institution if the family wants. I did discuss with the and he wants me to talk with the father when he comes in for decision on where to transfer her. Objective - Vital Signs Vital signs: Vital Signs Temp 97.4 F L 06/30/17 07:00 Pulse 52 L 06/30/17 07:00 Resp 18 06/30/17 07:00 BP 85/51 06/30/17 07:00 Pulse Ox 100 06/30/17 07:00 Intake & Output 06/29/17 06/30/17 06/30/17 18:59 06:59 18:59 Intake Total 100 0 Balance 100 0 Weight 42.638 kg Intake: Oral 100 0 Other: Voiding Method Toilet # Voids 3 1 # Bowel Movements 0 - Exam gen:alert and oriented, cachectic lungs:clear to auscultation heart:s1s2 abdomen:soft and depressible,non tender ext:no edema - Labs CBC & Chem 7: 06/27/17 07:25 06/27/17 07:25 Labs: Abnormal Lab Results - Last 24 Hours (Table) 06/29/17 06/29/17 Range/Units 11:41 21:11 POC Glucose (mg/dL) 106 H 107 H (75-99) mg/dL Assessment and Plan (1) Angioedema Narrative/Plan: The family's position is that do not want her to go to a tertiary care center directly from here. They want the patient discharged and do were set her up with a physician that can help her. Current Visit: Yes Status: Acute Code(s): T78.3XXA - ANGIONEUROTIC EDEMA, INITIAL ENCOUNTER SNOMED Code(s): 26057997 (2) Starvation Narrative/Plan: Patient has been refusing to eat with concerns of angioedema and urticaria. Current Visit: Yes Status: Acute Code(s): T73.0XXA - STARVATION, INITIAL ENCOUNTER SNOMED Code(s): 909786515 (3) Suicidal ideation Narrative/Plan: Patient deemed not actively suicidal and does not need inpatient psych. Patient says she is not actively suicidal Current Visit: Yes Status: Acute Code(s): R45.851 - SUICIDAL IDEATIONS SNOMED Code(s): 0008305 (4) Malnutrition Narrative/Plan: Patient refusing to eat secondary to concerns over the episode of angioedema Current Visit: Yes Status: Acute Code(s): E46 - UNSPECIFIED PROTEIN-CALORIE MALNUTRITION SNOMED Code(s): 77332679 Plan: Father and patient no one to be discharged so that they could call and take her to position that can help her problems. They say that they had found a physician that'll help her with her condition Patient will be discharged home today And again refusing to go to [facility].
== END 2017-06-30 11:47 | disposition home or self-care (01) | DRG 916 ==
LOC: EC 10:24 → 4MS4W 12:45 → OBSVTOIN 06-29 11:39
PROVIDERS: ADMIT Internal Medicine; ATTEND Internal Medicine
DX: T78.3XXA Angioneurotic edema, initial encounter (principal); R45.851 Suicidal ideations; E87.2 Acidosis; E46 Unspecified protein-calorie malnutrition; R64 Cachexia; E87.1 Hypo-osmolality and hyponatremia; Z68.1 Body mass index [BMI] 19.9 or less, adult; T73.0XXA Starvation, initial encounter; E16.2 Hypoglycemia, unspecified; E86.0 Dehydration; F43.21 Adjustment disorder with depressed mood; G43.909 Migraine, unspecified, not intractable, without status migrainosus; Z81.8 Family history of other mental and behavioral disorders; Z91.410 Personal history of adult physical and sexual abuse; Z91.018 Allergy to other foods
CPT/HCPCS: 36415; 80048; 80053; 80306; 80320; 81001; 82075; 82533; 82607; 82728; 82747; 82785; 83520; 83540; 83550; 83735; 84443; 85025; 85027; 86038; 86160; 86161; 86225; 96360; 99284